=== PATIENT | female | born 1945 | race Caucasian/White ===

== ENCOUNTER 2019-12-09 08:19 | Day surgery (SDC) | payer MEDICARE, BC ==
[2019-12-09] MEDS ORDERED: hydrALAZINE 20 MG/ML SDV IV ONE (08:20)
[2019-12-09] MEDS ORDERED: Labetalol 100 MG/20 ML MDV IV ONE (08:20)
[2019-12-09] MEDS ORDERED: Propofol 200 MG/20 ML SDV IV ONE (08:20)
[2019-12-09] MEDS ORDERED: Lactated Ringers 1,000 ML IV SCH (08:30)
[2019-12-09] MEDS ORDERED: Sodium Chloride 0.9% 10 ML Syringe FLUSH PRN (08:30)
--- NOTE | 2019-12-09 10:33 | PCM.OPNOTE ---
- General Post-Op/Procedure Note Date of Surgery/Procedure: 12/09/19 Operative Procedure(s): c scope Findings: sigmoid diverticulosis Pre Op Diagnosis: screening Post-Op Diagnosis: diverticulosis Anesthesia Technique: MAC Primary Surgeon: Anselmo Be Anesthesia Provider: Court Bermudez Pathology: none Complications: None Condition: Good Free Text/Narrative:: see dictation
[2019-12-09 11:09] VITALS: BP 145/76; PULSE 66
--- NOTE | 2019-12-09 15:14 | OR ---
DATE OF OPERATION: 12/09/2019 SURGEON: Anselmo Be MD PROCEDURE PERFORMED: Colonoscopy. PREOPERATIVE DIAGNOSIS: Need for screening C-scope. POSTOPERATIVE DIAGNOSIS: Diverticulosis. INDICATIONS FOR PROCEDURE: This is a 73-year-old white female who has a previous history of colon polyps, due for followup scope. She was offered and accepted colonoscopy. DESCRIPTION OF OPERATION: After an excellent IV sedation was administered, digital rectal exam was performed. No marked abnormality was noted. Flexible colonoscope was inserted and advanced without difficulty to the cecum. Prep was excellent. The following findings were noted. Ascending colon, unremarkable. Transverse colon, unremarkable. Descending colon, unremarkable. Sigmoid and rectum were notable for some mild diverticulosis scattered. Otherwise, no marked abnormality was noted. Colon was deflated as the scope was removed. The patient tolerated the procedure well and was taken to recovery. It should be noted that she did have an episode of hypertension during the case and required treatment. We will be having her followup with her PCP to get this addressed. Repeat scope in 10 years. /[id number] /MODL
== END 2019-12-09 11:13 | disposition home or self-care (01) ==
LOC: FB.SDS 08:19
PROVIDERS: ATTEND Surgery
DX: Z12.11 Encounter for screening for malignant neoplasm of colon (principal); K57.30 Diverticulosis of large intestine without perforation or abscess without bleeding; I10 Essential (primary) hypertension; F32.9 Major depressive disorder, single episode, unspecified; Z79.899 Other long term (current) drug therapy; Z86.010 Personal history of colon polyps
CPT/HCPCS: 00811-QZ; J0360; J2704; J3490; J7120

== ENCOUNTER 2023-07-01 08:55 | Emergency (ER) | payer MEDICARE, BC ==
[2023-07-01 12:25] VITALS: BP 170/85; PULSE 80
== END 2023-07-01 12:15 | disposition home or self-care (01) ==
LOC: FB.ED 08:55
DX: S82.831A Other fracture of upper and lower end of right fibula, initial encounter for closed fracture (principal); X50.1XXA Overexertion from prolonged static or awkward postures, initial encounter
CPT/HCPCS: 36415; 73610-RT; 85379; 99283